=== PATIENT | female | born 1965 ===

== ENCOUNTER 2018-03-19 00:02 | Emergency (ER) | payer OTHER ==
[2018-03-19 00:26] VITALS: RESP 20
[2018-03-19 00:58] LABS: SQUAMOUS EPITHIAL 1 /hpf (0-5); URINE BILIRUBIN NEGATIVE (NEGATIVE); URINE BLOOD NEGATIVE (NEGATIVE); URINE CLARITY Clear (Clear); URINE COLOR Straw (YELLOW); URINE GLUCOSE (UA) NORMAL (Normal); URINE LEUKOCYTE ESTERASE TRACE Leu/uL (Negative); URINE PROTEIN NEGATIVE (NEGATIVE); URINE UROBILINOGEN NORMAL mg/dL (0.2-1.0)
[2018-03-19 01:08] LABS: HCG,QUALITATIVE URINE NEGATIVE (NEGATIVE)
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
[2018-03-19] MEDS ORDERED: Emtricitabine-Tenofovir 200 mg-300 mg Tab PO STA (01:41)
[2018-03-19] MEDS ORDERED: cefTRIAXone (Rocephin) 250 mg Inj IM STA (01:41)
[2018-03-19] MEDS ORDERED: Emtricitabine-Tenofovir 200 mg-300 mg Tab PO NR (01:45)
[2018-03-19 03:31] VITALS: BP 109/74; PULSE 95; TEMP 98.5
[2018-03-19 03:36] LABS: HEMOGLOBIN 16.1 g/dL (11.0-16.0); MEAN CELL VOLUME 87.1 fL (81.0-99.0); MEAN CORPUSCULAR HGB CONC 34.4 g/dL (33.0-37.0); MEAN PLATELET VOLUME 8.8 fL (7.2-11.7); RBC 5.37 Mil/uL (3.80-5.20); RED CELL DISTRIBUTION WIDTH 13.6 % (11.5-14.5); WHITE BLOOD COUNT 8.8 K/uL (4.8-10.8)
[2018-03-19 03:53] LABS: ALB/GLOB RATIO 1.4 (1.0-2.1); ALBUMIN 5.2 g/dL (3.5-5.0); ALT/SGPT 64 U/L (9-52); AST/SGOT 58 U/L (14-36); BLOOD UREA NITROGEN 11 mg/dL (7-17); CALCIUM 11.2 mg/dl (8.6-10.4); GFR NON-AFRICAN AMERICAN > 60
[2018-03-19 04:49] VITALS: O2SAT 97
== END 2018-03-19 03:30 | disposition home or self-care (01) ==
LOC: C.ER 00:02 → EDBD 00:02 → C.ER 03:30
DX: T76.21XA Adult sexual abuse, suspected, initial encounter (principal)
CPT/HCPCS: 36415; 80053; 81001; 84703; 85027; 86592; 86703; 86706; 96372; 99285; J0696

== ENCOUNTER 2018-04-27 09:56 | Emergency (ER) | payer OTHER ==
[2018-04-27 10:02] VITALS: TEMP 98.6
--- NOTE | 2018-04-27 10:40 | C.PDOC ---
History Of Present Illness 52 y/o female with a PMHx of left lower leg surgery and HTN, presents today with complaints of nonproductive cough, cold and congestion over the past 2 days. Reports she developed bodyaches and chills, symptoms feel like previous flu. Of note patient did not receive a flu vaccine this year. Patient notes subjective fever at home, but did not take temp. She took advil with some improvement in bodyaches last night. Otherwise she denies any vomiting, diarrhea, chest pain, SOB, or urinary complaints. HPI: Influenza Time Seen by Provider: 04/27/18 10:31 Chief Complaint: Cough, Cold, Congestion Chief Complaint (Provider): Flu-like symptoms History Per: Patient Exam Limitations: no limitations Onset/Duration Of Symptoms: Days (x2) Symptoms include: fever, bodyaches, cough, nasal congestion Hx Influenza Vaccination: No Past Medical History Reviewed: Historical Data, Nursing Documentation, Vital Signs Vital Signs: Last Vital Signs Temp 98.6 F 04/27/18 10:01 Pulse 67 04/27/18 10:01 Resp 18 04/27/18 10:01 BP 138/93 H 04/27/18 10:01 Pulse Ox 97 04/27/18 10:01 - Medical History PMH: HTN, Hyperlipidemia Other Surgeries: Left leg surgery Family History: States: Unknown Family Hx - Social History Hx Alcohol Use: Yes Hx Substance Use: No - Immunization History Hx Tetanus Toxoid Vaccination: No Hx Influenza Vaccination: No Hx Pneumococcal Vaccination: No Review Of Systems Constitutional: Positive for: Fever (subjective), Chills, Other (Body aches) ENT: Positive for: Nose Discharge, Nose Congestion Cardiovascular: Negative for: Chest Pain Respiratory: Positive for: Cough. Negative for: Shortness of Breath, Sputum Gastrointestinal: Negative for: Vomiting, Diarrhea Skin: Negative for: Rash Neurological: Negative for: Weakness, Dizziness Physical Exam - Physical Exam Appears: Non-toxic, No Acute Distress Skin: Warm, Dry Head: Normacephalic Eye(s): bilateral: Normal Inspection, PERRL, EOMI Ear(s): Bilateral: Normal (TMs clear, no erythema) Nose: Discharge (Mild nasal congestion) Oral Mucosa: Moist Throat: Normal, No Erythema, No Exudate Neck: Trachea Midline, Supple, Other (No meningeal signs- negative kernig's and brudzinskis) Chest: Symmetrical Cardiovascular: Rhythm Regular, Other (No rub) Respiratory: No Rales, No Rhonchi, No Wheezing Gastrointestinal/Abdominal: Soft, No Tenderness, No Distention Extremity: Bilateral: Normal Color And Temperature Pulses: Left Dorsalis Pedis: Normal, Right Dorsalis Pedis: Normal Neurological/Psych: Oriented x3 Gait: Steady Medical Decision Making Medical Decision Makin yr old F p/w congestion, cough, fever, chills, body aches. No fall or trauma. No meningeal signs. Lungs cta b/l. No GI or complaints. No rash. Likely viral syndrome. Well appearing in NAD. No posterior lymphadenopathy. No difficulty swallowing. Impression: Flu vs viral URI Will obtain strep and flu swabs. Strep and fllu negative: however given high false neg rate of flu will rx given high clinical suspicion pt in NAD and agreeable to plan lung remain cta b/l clear for d/c home with f/u and return indications - ECG O2 Sat by Pulse Oximetry: 97 (RA) Pulse Ox Interpretation: Normal Disposition - Disposition Referrals: [facility] [Outside] [facility] [Outside] [facility] [Outside] Disposition: HOME/ ROUTINE Disposition Time: 11:59 Condition: GOOD Instructions: Influenza (ED), Upper Respiratory Infection (ED) Forms: [employer] (Polish) - Clinical Impression Clinical Impression: Influenza-like illness, Viral disease, Upper respiratory infection - Scribe Statement The provider has reviewed the documentation as recorded by the Scribe Mercedes Barajas Provider Attestation: All medical record entries made by the Scribe were at my direction and personally dictated by me. I have reviewed the chart and agree that the record accurately reflects my personal performance of the history, physical exam, medical decision making, and the department course for this patient. I have also personally directed, reviewed, and agree with the discharge instructions and disposition.
[2018-04-27 11:50] LABS: INFLUENZA A B NEGATIVE FOR FLU A/B (NEGATIVE)
[2018-04-27 12:10] VITALS: BP 139/85; PULSE 75; RESP 16; O2SAT 98
== END 2018-04-27 12:10 | disposition home or self-care (01) ==
LOC: C.ER 09:56
DX: J11.1 Influenza due to unidentified influenza virus with other respiratory manifestations (principal); B34.9 Viral infection, unspecified